=== PATIENT | female | born 1960 | race Caucasian/White ===

== ENCOUNTER 2018-05-21 12:33 | Day surgery (SDC) | payer OTHER, MEDICAID ==
[~2018-05-21] VITALS: Ht 167.6 cm; Wt 85.5 kg
[~2018-05-21 12:33] MED LIST: ALBU18HF2 INH; CARV3.12 PO; LEDI1TAB PO; LEVO50TA PO
[2018-05-21 12:42] VITALS: BP 141/69
[2018-05-21] MEDS ORDERED: fentaNYL/PF 50MCG/1 ML 2ML syringe ONE (12:42)
[2018-05-21] MEDS ORDERED: MIDAZolam 5mg/5ml vial ONE (12:43)
[2018-05-21] MEDS ORDERED: LIDOcaine Viscous 15ml cup ONE (12:43)
[2018-05-21 14:10] VITALS: BP 149/77
[2018-05-21 14:20] VITALS: BP 134/80
[2018-05-21 14:30] VITALS: BP 114/78
[2018-05-21 14:35] VITALS: BP 139/83
== END 2018-05-21 14:41 | disposition home or self-care (01) ==
LOC: GI LAB 12:33
PROVIDERS: ATTEND Internal Medicine Gastroenterology
DX: I85.00 Esophageal varices without bleeding (principal); K76.6 Portal hypertension; K31.89 Other diseases of stomach and duodenum; J84.10 Pulmonary fibrosis, unspecified; Z87.09 Personal history of other diseases of the respiratory system; Z99.81 Dependence on supplemental oxygen; Z86.19 Personal history of other infectious and parasitic diseases; Z87.891 Personal history of nicotine dependence; Z79.899 Other long term (current) drug therapy; Z98.890 Other specified postprocedural states
CPT/HCPCS: 43244; 99152; J2250; J3010; J7030; A4620